=== PATIENT | female | born 1950 | race African-American/Black ===

== ENCOUNTER 2024-03-19 10:33 | Emergency (ER) | payer BC, OTHER ==
[~2024-03-19] VITALS: Ht 170.2 cm; Wt 118.1 kg
[~2024-03-19 10:33] MED LIST: ALBU18; AMLO1TAB22; ATEN-60; LISI10TA34; NAPR-746; SIMV20TA20
[2024-03-19] MEDS ORDERED: HYDROmorphone HCL 2 MG/ML VL/or syr IM ONE (10:45)
[2024-03-19] MEDS ORDERED: ONDANSETRON HCL 4 MG/2 ML VIAL IM ONE (10:45)
[2024-03-19 11:18] LABS: Chloride 106 mmol/L (98-107); Potassium 4.3 mmol/L (3.5-5.1); Sodium 140 mmol/L (136-145)
[2024-03-19 11:19] LABS: Anion Gap 0 (5-15); Calcium 9.6 mg/dL (8.5-10.1); Carbon Dioxide 34 mmol/L (20-30)
[2024-03-19 11:24] LABS: BUN/Creatinine Ratio 9.4 (10.0-20.0); Blood Urea Nitrogen 9 mg/dL (9-23); Glucose 93 mg/dL (74-106)
[2024-03-19 11:45] LABS: Basophils # (auto) 0.1 10 ^3/uL (0-0.2); Basophils % (auto) 0.9 % (0.0-2.0); Eosinophils # (auto) 0.1 10 ^3/uL (0-0.8); Eosinophils % (auto) 2.1 % (0.0-7.0); Hematocrit 44.2 % (36.0-46.0); Hemoglobin 14.1 g/dL (12.2-16.2); Lymphocytes # (auto) 2.3 10 ^3/uL (0.4-5.4); Lymphocytes % (auto) 39.1 % (10.0-50.0); Mean Corpuscular Hemoglobin 27.3 pg (28.0-32.0); Mean Corpuscular Hgb Conc. 31.8 g/dL (32.0-36.0); Mean Corpuscular Volume 85.6 fL (80.0-100.0); Monocytes # (auto) 0.6 10 ^3/uL (0-1.3); Monocytes % (auto) 9.3 % (0.0-12.0); Neutrophils # (auto) 2.9 10 ^3/uL (1.6-8.6); Neutrophils % (auto) 48.6 % (37.0-80.0); Nucleated Red Blood Cells % 0.2 %; Red Blood Cells 5.17 10^6/uL (4.0-5.20); Red Cell Distribution Width 15.9 % (11.8-14.3); White Blood Cell 5.9 10^3/uL (4.4-10.8)
[2024-03-19 16:31] LABS: Urine Bacteria FEW /hpf (None Seen); Urine Blood Negative /uL (Negative); Urine Clarity Clear (Clear); Urine Color Light-Yellow (Yellow); Urine Mucus FEW (None Seen); Urine Protein, UAD Negative (Negative); Urine Specific Gravity 1.017 (1.001-1.035); Urine Urobilinogen Normal (Negative); Urine WBC 2 /hpf (0 - 5)
[2024-03-19] MEDS ORDERED: HYDR-4902 PO (17:08)
[2024-03-19 21:10] VITALS: BP 177/85; PULSE 71; RESP 16; TEMP 97.9; O2SAT 96
== END 2024-03-19 21:19 | disposition home or self-care (01) ==
LOC: ER 10:33 → EDUNIT# 10:33 → EDBD 10:33 → ER 21:19
DX: M79.18 Myalgia, other site (principal); M54.50 Low back pain, unspecified; I10 Essential (primary) hypertension; J45.909 Unspecified asthma, uncomplicated; E78.5 Hyperlipidemia, unspecified; Z98.51 Tubal ligation status
CPT/HCPCS: 36415; 74176; 80048; 81001; 85025; 93005